=== PATIENT | female | born 1995 | race Two or more races ===

== ENCOUNTER 2024-01-23 11:55 | Emergency (ER) | payer OTHER ==
[~2024-01-23] VITALS: Ht 157.5 cm; Wt 63.5 kg
[2024-01-23] MEDS ORDERED: ONDANSETRON HCL 2 MG/ML VIAL IV ONE (13:30)
[2024-01-23] MEDS ORDERED: 0.9 % SODIUM CHLORIDE 1,000 ML IV ONE (13:30)
[2024-01-23] MEDS ORDERED: MEPERIDINE HCL/PF 25 MG/ML VIAL IV ONE (13:30)
[2024-01-23] MEDS ORDERED: ONDANSETRON HCL 2 MG/ML VIAL ONE (13:48)
[2024-01-23 14:17] LABS: HEMATOCRIT 38.7 % (36.0-45.00); MEAN CORPUSCULAR HEMOGLOBIN 30.5 pg (27.00-32.0); MEAN CORPUSCULAR HGB CONC 33.5 g/dl (32.0-36.0); PLATELET COUNT 442 K/uL (150-450); RED BLOOD COUNT 4.25 M/uL (4.00-6.00); RED CELL DISTRIBUTION WIDTH 14.6 % (11.5-14.5)
[2024-01-23 14:58] LABS: PH,URINE 6.5 (5.0-8.0); URINE APPEARANCE Clear; URINE BILIRRUBIN Negative (NEGATIVE); URINE BLOOD Negative; URINE COLOR Yellow; URINE GLUCOSE Negative (NEGATIVE); URINE KETONE Negative (NEGATIVE); URINE LEUKOCYTE Negative; URINE NITRATE Negative; URINE PROTEIN Negative (NEGATIVE); URINE UROBILINOGEN 0.2 E.U./dl
[2024-01-23 15:04] LABS: URINE BACTERIA 5616.6 uL (0.0-1933); URINE EPITHELIAL CELLS 108.3 uL (0.0-38.8); URINE RBC 112.9 uL (0.0-20.8); URINE WBC 14.6 uL (0.0-23.2)
[2024-01-23 15:33] LABS: URINE MUCUS SCANT
== END 2024-01-23 16:29 | disposition home or self-care (01) ==
LOC: ER 11:56
PROVIDERS: General Practice
DX: O26.891 Other specified pregnancy related conditions, first trimester (principal); R10.2 Pelvic and perineal pain; Z3A.08 8 weeks gestation of pregnancy

== ENCOUNTER 2024-03-02 10:02 | Outpatient (CLI) | payer OTHER | END 2024-03-02 10:10 | disposition home or self-care (01) | LOC: PRENATAL 10:02 | PROVIDERS: ATTEND Obstetrics & Gynecology Maternal & Fetal Medicine | DX: O36.80X0 Pregnancy with inconclusive fetal viability, not applicable or unspecified (principal); Z36.82 Encounter for antenatal screening for nuchal translucency; Z14.8 Genetic carrier of other disease; Z3A.11 11 weeks gestation of pregnancy ==

== ENCOUNTER → 2024-04-30 10:07 | Outpatient (CLI) | payer OTHER | END | disposition home or self-care (01) | LOC: PRENATAL 10:07 | PROVIDERS: ATTEND Obstetrics & Gynecology Maternal & Fetal Medicine | DX: O44.00 Complete placenta previa NOS or without hemorrhage, unspecified trimester (principal); O36.1999 Maternal care for other isoimmunization, unspecified trimester, other fetus; Z3A.20 20 weeks gestation of pregnancy ==

== ENCOUNTER 2024-07-23 11:20 | Outpatient (CLI) | payer OTHER | END 2024-07-23 11:21 | disposition home or self-care (01) | LOC: PRENATAL 11:20 | PROVIDERS: ATTEND Obstetrics & Gynecology Maternal & Fetal Medicine | DX: O44.00 Complete placenta previa NOS or without hemorrhage, unspecified trimester (principal); O36.1999 Maternal care for other isoimmunization, unspecified trimester, other fetus; Z3A.32 32 weeks gestation of pregnancy ==

== ENCOUNTER 2024-09-06 13:08 | Inpatient (IN) | payer OTHER ==
[~2024-09-06] VITALS: Ht 157.5 cm; Wt 77.1 kg
[2024-09-06 14:25] LABS: PH,URINE 6.5 (5.0-8.0); URINE APPEARANCE Cloudy; URINE BILIRRUBIN Negative (NEGATIVE); URINE BLOOD Negative; URINE COLOR Yellow; URINE GLUCOSE Negative (NEGATIVE); URINE KETONE Negative (NEGATIVE); URINE LEUKOCYTE Moderate; URINE NITRATE Negative; URINE PROTEIN Trace (NEGATIVE); URINE UROBILINOGEN 0.2 E.U./dl
[2024-09-06 14:29] LABS: URINE EPITHELIAL CELLS 27.3 uL (0.0-38.8); URINE RBC 19.2 uL (0.0-20.8); URINE WBC 304.3 uL (0.0-23.2)
[2024-09-06 14:32] LABS: HEMATOCRIT 32.3 % (36.0-45.00); HEMOGLOBIN 10.6 g/dL (12.0-15.00); MEAN CELL VOLUME 85.3 fL (80.00-100.00); MEAN CORPUSCULAR HEMOGLOBIN 27.9 pg (27.00-32.0); MEAN CORPUSCULAR HGB CONC 32.8 g/dl (32.0-36.0); PLATELET COUNT 406 K/uL (150-450); RED BLOOD COUNT 3.79 M/uL (4.00-6.00); RED CELL DISTRIBUTION WIDTH 15.3 % (11.5-14.5)
[2024-09-06 14:55] LABS: INR < 0.93; PARTIAL THROMBOPLASTIN TIME 24.8 SECONDS (22.0-34.0); PROTHROMBIN TIME 9.3 SECONDS (9.0-11.5)
[2024-09-06 15:50] LABS: URINE BACTERIA > 9821.5 uL (0.0-1933); URINE CAST 0.58 uL (0.0-1.40)
[2024-09-19 09:16] VITALS: BP 117/78
[2024-09-19] MEDS ORDERED: PRIMACARE SOFT1 EACH PO (10:50)
[2024-09-19] MEDS ORDERED: MORPHINE SULFATE 4 MG/ML CARTRIDGE IV ONE (11:00)
[2024-09-19] MEDS ORDERED: RINGERS SOLUTION,LACTATED 1,000 ML IV SCH (11:00)
[2024-09-19 12:17] VITALS: BP 120/62
[2024-09-19 15:28] VITALS: BP 115/64
[2024-09-19 19:31] VITALS: BP 115/57
[2024-09-19 23:36] VITALS: BP 120/57
[2024-09-20 01:50] VITALS: BP 121/60
[2024-09-20] MEDS ORDERED: MORPHINE SULFATE 4 MG/ML VIAL IV ONE (02:00)
[2024-09-20 03:16] VITALS: BP 107/60
[2024-09-20 07:32] VITALS: BP 121/65
[2024-09-20] MEDS ORDERED: MISOPROSTOL 25 MCG/4 ML GEL.W.APPL VAG ONE (07:45)
[2024-09-20] MEDS ORDERED: ONDANSETRON HCL 2 MG/ML VIAL IV ONE (10:00)
[2024-09-20 11:42] VITALS: BP 110/62
[2024-09-20] MEDS ORDERED: MORPHINE SULFATE 4 MG/ML CARTRIDGE IV ONE (12:00)
[2024-09-20] MEDS ORDERED: OXYTOCIN 500 ML IV SCH (12:30)
[2024-09-20 19:16] VITALS: BP 137/69
[2024-09-20] MEDS ORDERED: ERYTHROMYCIN BASE OPHT 1GM EACH TUBE OP ONE (20:13)
[2024-09-20] MEDS ORDERED: CEFAZOLIN SODIUM 1,000 MG VIAL ONE (20:13)
[2024-09-20] MEDS ORDERED: OXYTOCIN 10 UNITS/ML VIAL ONE (20:13)
[2024-09-20] MEDS ORDERED: CEFAZOLIN SODIUM 1,000 MG VIAL IV SCH (20:30)
[2024-09-20] MEDS ORDERED: PROMETHAZINE HCL 25 MG/ML AMPUL IV PRN (21:30)
[2024-09-20] MEDS ORDERED: KETOROLAC TROMETHAMINE 30 MG VIAL IV PRN (21:30)
[2024-09-20] MEDS ORDERED: OXYTOCIN 1,000 ML IV SCH (21:30)
[2024-09-20] MEDS ORDERED: MORPHINE SULFATE 4 MG/ML CARTRIDGE IV PRN (21:45)
[2024-09-21] MEDS ORDERED: OXYTOCIN 10 UNITS/ML VIAL ONE (00:28)
[2024-09-21 01:20] VITALS: BP 115/69
[2024-09-21 02:14] LABS: HEMOGLOBIN 11.1 g/dL (11.2-15.7); RED BLOOD COUNT 4.07 M/uL (3.93-5.22)
[2024-09-21 02:15] LABS: BASO % 0.2 % (0.1-1.2); HEMATOCRIT 33.1 % (34.1-44.9); LYMPH % 4.9 % (19.3-53.1); MEAN CORPUSCULAR HEMOGLOBIN 27.3 pg (25.6-32.2); MONO % 6.4 % (4.7-12.5); NEUT # 28.96 (1.56-6.13); NEUT % 87.8 % (34.0-71.1); PLATELET COUNT 410 K/uL (163-369); RED CELL DISTRIBUTION WIDTH 15.3 % (11.6-14.4)
[2024-09-21 02:16] LABS: MONO # 2.11 (0.24-0.82)
[2024-09-21] MEDS ORDERED: IBUprofen 800 MG TABLET PO PRN (07:00)
[2024-09-21] MEDS ORDERED: OxyCODONE HCL 5 MG TABLET (ROXICODONE) PO PRN (07:00)
[2024-09-21 08:00] VITALS: BP 116/70
[2024-09-21] MEDS ORDERED: ACETAMINOPHEN 325 MG TABLET PO SCH (08:00)
[2024-09-21] MEDS ORDERED: SIMETHICONE 125 MG CAPSULE PO SCH (09:00)
[2024-09-21] MEDS ORDERED: DOCUSATE SODIUM 100MG CAP PO SCH (09:00)
[2024-09-21] MEDS ORDERED: FF) RHO(D) IMMUNE GLOBULIN (POM) IM ONE (14:30)
[2024-09-21 15:53] VITALS: BP 105/63
[2024-09-21] MEDS ORDERED: ONDANSETRON HCL 2 MG/ML VIAL IV STA (20:37)
[2024-09-21] MEDS ORDERED: FAMOTIDINE/PF 20 MG/2 ML VIAL IV PUSH STA (20:38)
[2024-09-21] MEDS ORDERED: ONDANSETRON HCL 2 MG/ML VIAL IV PRN (20:45)
[2024-09-21] MEDS ORDERED: FAMOTIDINE/PF 20 MG/2 ML VIAL IV PUSH SCH (21:00)
[2024-09-22 01:07] VITALS: BP 110/71
[2024-09-22] MEDS ORDERED: PROMETHAZINE HCL 25 MG/ML AMPUL IV STA (04:45)
[2024-09-22] MEDS ORDERED: MORPHINE SULFATE 4 MG/ML CARTRIDGE IV PRN (05:00)
[2024-09-22] MEDS ORDERED: KETOROLAC TROMETHAMINE 30 MG VIAL IV PRN (05:00)
[2024-09-22 06:49] LABS: BASO % 0.2 % (0.1-1.2); HEMATOCRIT 28.3 % (34.1-44.9); HEMOGLOBIN 9.6 g/dL (11.2-15.7); LYMPH # 2.49 (1.18-3.74); LYMPH % 8.1 % (19.3-53.1); MEAN CORPUSCULAR HEMOGLOBIN 28.1 pg (25.6-32.2); MONO # 1.59 (0.24-0.82); MONO % 5.2 % (4.7-12.5); NEUT # 26.31 (1.56-6.13); NEUT % 85.8 % (34.0-71.1); PLATELET COUNT 399 K/uL (163-369); RED BLOOD COUNT 3.42 M/uL (3.93-5.22); RED CELL DISTRIBUTION WIDTH 15.5 % (11.6-14.4)
[2024-09-22 07:14] LABS: BILIRUBIN TOTAL 0.6 mg/dL (0.3-1.2); CALCIUM 8.2 mg/dL (8.5-10.1); CREATININE SERUM 0.8 mg/dL (0.55-1.02); GFR 86.04; GLOBULINA 3.8 G/DL (2.4-3.5); POTASSIUM 3.99 mEq/L (3.5-5.1); TOTAL PROTEIN 5.8 gm/dL (6.4-8.2)
[2024-09-22 09:11] VITALS: BP 113/72; O2SAT 97
[2024-09-22] MEDS ORDERED: 0.9 % SODIUM CHLORIDE 1,000 ML IV SCH (13:15)
[2024-09-22] MEDS ORDERED: METOCLOPRAMIDE HCL 5 MG/ML VIAL IV NR (14:00)
[2024-09-22 16:01] VITALS: BP 109/68
[2024-09-22] MEDS ORDERED: METOCLOPRAMIDE HCL 5 MG/ML VIAL IV SCH (21:00)
[2024-09-23] VITALS: BP 104/65
[2024-09-23 08:59] VITALS: BP 127/65
[2024-09-23 16:01] VITALS: BP 118/74
== END 2024-09-23 17:06 | disposition home or self-care (01) | DRG 788 ==
LOC: OB/GYN 09-17 13:30 → LDR 09-19 10:24 → O/R 09-20 20:37 → OB/GYN 09-20 22:30
PROVIDERS: Student in an Organized Health Care Education/Training Program; ADMIT Obstetrics & Gynecology; ATTEND Obstetrics & Gynecology
PROC: 4A1HXCZ Monitoring of Products of Conception, Cardiac Rate, External Approach (ICD-10-PCS; 2024-09-19)
PROC: 10D00Z1 Extraction of Products of Conception, Low, Open Approach (ICD-10-PCS; principal; 2024-09-20 20:30)
DX: O82 Encounter for cesarean delivery without indication (principal); O62.1 Secondary uterine inertia; Z3A.40 40 weeks gestation of pregnancy; Z37.0 Single live birth